=== PATIENT | male | born 1980 | race Caucasian/White ===

== ENCOUNTER 2019-02-09 13:12 | Inpatient (IN) | payer OTHER ==
--- NOTE | 2019-02-09 13:29 | PDOC ---
History of Present Illness - General Stated Complaint: BLOOD PRESSURE PROBLEM Time Seen by Provider: 02/09/19 13:29 - History of Present Illness Initial Comments: 02/09/19 13:47 The patient is a 38 year old male with a PMH of HTN, ETOH abuse, Heroin abuse, Cocaine abuse who was BIBA from [facility] for high blood pressure. States he hasn't taken his blood pressure medications for three days because he ran out of his prescription. Cannot recall the names of his medications but states he takes 5 medications daily. Patient also reports two week h/o intermittent L sided chest pain that is localized, pressure-like, occurs during exertion and lasts 30 minutes. Estimates 5-6 episodes over the last two weeks. Endorses baseline dyspnea on exertion without PND or orthopnea. No lower extremity swelling. Patient states he was evaluated on the third floor of our hospital in September of this year with a an echocardiogram and was told he had the heart of a 90 year old. Patient at [facility] for heroin and alcohol detoxification. Last heroin use was 2 bags on Friday, last alcohol use was 20 beers over the weekend. No h/o IVDU. As per EMR, patient's BP was 250/150 at [facility]. Currently on methadone. As per EMR, patient reported to [facility] that his is on Coreg, Amlodipine, HCTz , ASA. Patient denies fever, chills, abdominal pain, nausea, vomit, diarrhea or constipation. Patient denies dysuria, frequency, urgency or hematuria. Patient denies sick contacts or recent travel. NKDA PMD: In [place], cannot recall name Past History - Past Medical History Allergies/Adverse Reactions: Allergies Allergy/AdvReac Type Severity Reaction Status Date / Time No Known Allergies Allergy Verified 02/09/19 11:40 Home Medications: Ambulatory Orders Amlodipine Besylate 10 mg PO DAILY 02/09/19 Aspirin [ASA -] 81 mg PO DAILY 02/09/19 Carvedilol 12.5 mg PO DAILY 02/09/19 Hydrochlorothiazide 25 mg PO DAILY 02/09/19 Methadone HCl 30 mg PO DAILY 02/09/19 Review of Systems - Review of Systems Constitutional: No: Chills, Fever HEENTM: No: Recent change in vision Respiratory: Yes: Shortness of Breath. No: Orthopnea Cardiac (ROS): Yes: Chest Pain ABD/GI: No: Constipated, Diarrhea, Nausea, Vomiting : No: Burning, Dysuria *Physical Exam - Physical Exam Comments: 02/09/19 16:38 Triage VS reviewed General: awake, alert, NAD CV: S1, S2, Systolic Murmur best appreciated in 2nd L intercostal space Respiratory: CLTA B/L Abdomen: soft, non-tender, (+) bowel sounds, no hernia/mass Neuro: A&O x3, CN II-XII intact Extremity: no LE edema, 2+ DP pulses B/L Heart Score/ECG Review - History History: Moderately suspicious (HR 55 with TWI in lateral and inferior leads) - Age Age: </= 45 - Risk Factors Risk Factors Heart Score: Yes Hx Hypertension, Yes Smoking History - Troponin Troponin: 1-3x normal limit - ST and T Non Specific ST-T Wave changes: Yes Flattened T Waves: Yes ED Treatment Course - LABORATORY CBC & Chemistry Diagram: 02/09/19 14:00 02/09/19 14:00 Medical Decision Making - Medical Decision Making 02/09/19 14:04 38 year old male with elevated BP and chest pain. H/o non-adherence to BP medications. H/o recent cocaine and heroin abuse and self-reported concerning cardiac evaluation in September 2018 including TTE. Hypertensive (226/149) @ presentation. Will evaluate for r/o ACS, also consider cocaine induced CP, esophageal spasm, GERD, costochondritis. Low clinical suspicion for aortic dissection or PE or Sx Tricupsid Regurg PLAN: EKG, Troponin, CBC/CMP, Coags, Cardiac Monitoring 02/09/19 14:11 Repeat BP 226/140 Will give patient home dose of BP meds EKG shows TWI in inferior and lateral leads - ASA 325 for possible NSTEMI 02/09/19 15:26 Repeat BP 220/109 - will start Nitro drip Cr 1.8 Troponin 0.12 - will give ASA for possible NSTEMI 02/09/19 15:43 Nitro drip pending, awaiting pharmacy - 207/126 MAP 153 02/09/19 15:44 Case d/w [employer] Chela, will admit to telemetry 02/09/19 16:09 Repeat BP 170/95 MAP 120 - @ target, will pause nitro drip Clinical Impression: Hypertensive Emergency, ? NSTEMI *DC/Admit/Observation/Transfer Diagnosis at time of Disposition: Chest pain, Hypertensive emergency - Discharge Dispostion Condition at time of disposition: Fair Decision to Admit order: Yes - Referrals - Patient Instructions - Post Discharge Activity
[2019-02-09 14:10] LABS: BASO % 0.4 % (0-2.0); EOS % 0.9 % (0-4.5); HEMATOCRIT 38.2 % (35.4-49); LYMPH % 31.4 % (8-40); MCH 28.9 pg (25.7-33.7); MCHC 34.1 g/dl (32.0-35.9); MEAN CELL VOLUME 84.7 fl (80-96); MEAN PLT VOLUME 7.5 fl (7.5-11.1); MONO % 6.6 % (3.8-10.2); NEUT % 60.7 % (42.8-82.8); RBC 4.51 M/mm3 (4.00-5.60); RDW 13.6 % (11.9-15.9); WHITE BLOOD COUNT 7.4 K/mm3 (4.0-10.0)
[2019-02-09] MEDS ORDERED: amLODIPine BESYLATE 10 MG TABLET (FP) PO ONE (14:12)
[2019-02-09] MEDS ORDERED: ASPIRIN 325 MG TABLET PO ONE (14:12)
[2019-02-09] MEDS ORDERED: HYDROCHLOROTHIAZIDE 25 MG TABLET (FP) PO ONE ×2 (14:13→22:57)
[2019-02-09 14:18] LABS: PLATELET COUNT 272 K/MM3 (134-434)
[2019-02-09] MEDS ORDERED: ASPIRIN 325 MG TABLET ONE (14:29)
[2019-02-09] MEDS ORDERED: amLODIPine BESYLATE 5 MG TABLET (FP) ONE (14:29)
[2019-02-09] MEDS ORDERED: CARVEDILOL 12.5 MG TABLET (FP) ONE (14:30)
[2019-02-09] MEDS ORDERED: CARVEDILOL 12.5 MG TABLET (FP) PO ONE (14:35)
[2019-02-09] MEDS ORDERED: NITROGLYCERIN 2% OINTMENT - 1GM PACKET TD ONE ×2 (14:36→14:50)
--- NOTE | 2019-02-09 14:50 | EKG ---
Test Reason : Blood Pressure : / mmHG Vent. Rate : 055 BPM Atrial Rate : 055 BPM P-R Int : 180 ms QRS Dur : 098 ms QT Int : 466 ms P-R-T Axes : 055 025 225 degrees QTc Int : 445 ms SINUS BRADYCARDIA WITH SINUS ARRHYTHMIA POSSIBLE LEFT ATRIAL ENLARGEMENT LEFT VENTRICULAR HYPERTROPHY WITH REPOLARIZATION ABNORMALITY ABNORMAL ECG NO PREVIOUS ECGS AVAILABLE Confirmed by Pritesh Gutierrez MD ([id number]) on 02/09/2019 2:49:39 PM Referred By: Confirmed By:Pritesh Gutierrez MD
[2019-02-09 15:00] LABS: ALBUMIN 3.6 g/dl (3.4-5.0); BLOOD UREA NITROGEN 24.3 mg/dL (7-18); CALCIUM 8.5 mg/dL (8.5-10.1); CREATININE 1.8 mg/dL (0.55-1.3); POTASSIUM 3.3 mmol/L (3.5-5.1)
[2019-02-09 15:01] LABS: BILIRUBIN,TOTAL 0.3 mg/dL (0.2-1)
--- NOTE | 2019-02-09 15:26 | PDOC ---
Documentation entered by Iram Carrizales SCRIBE, acting as scribe for Lydia Laws MD. Lydia Laws MD: This documentation has been prepared by the All gipson Brenda, SCRIBE, under my direction and personally reviewed by me in its entirety. I confirm that the documentation accurately reflects all work, treatment, procedures, and medical decision making performed by me. Attending Attestation - Resident Resident Name: Astrid Garcia - ED Attending Attestation I have performed the following: I have examined & evaluated the patient, The case was reviewed & discussed with the resident, I agree w/resident's findings & plan, Exceptions are as noted - HPI HPI: 02/09/19 15:09 The patient is a 38 year old male, with a significant PMH of who presents to the emergency department [facility] from [facility] for high blood pressure. The EMR reported that his BP high enroute. The patient also reports 2 days of left sided chest pain, which feels like pressure, and having an onset of the same pressure since being in the ED. Patient also reports that he was recently seen in the hospital in September, where he received an echocardiogram and was told that he had the heart of a 89 year old man. The patient denies headache and dizziness. Denies fever and chills. Allergies: NKA Social history: Smoker PCP: Not reported - Physicial Exam PE: 02/09/19 15:09 GENERAL: Awake, alert, and fully oriented, in no acute distress HEAD: No signs of trauma EYES: PERRLA, EOMI, sclera anicteric, conjunctiva clear ENT: Auricles normal inspection, hearing grossly normal, nares patent, oropharynx clear without exudates. Moist mucosa NECK: Normal ROM, supple, no lymphadenopathy, JVD, or masses LUNGS: Breath sounds equal, clear to auscultation bilaterally. No wheezes, and no crackles HEART: Regular rate and rhythm, normal S1 and S2, no murmurs, rubs or gallops ABDOMEN: Soft, nontender, normoactive bowel sounds. No guarding, no rebound. No masses EXTREMITIES: Normal range of motion, no edema. No clubbing or cyanosis. No cords, erythema, or tenderness NEUROLOGICAL: Cranial nerves II through XII grossly intact. Normal speech, normal gait SKIN: Warm, Dry, normal turgor, no rashes or lesions noted. - Medical Decision Making 02/09/19 15:14 Pt presents to the ED complaining of chest pain and shortness of breath that have been intermittent since running out of his antihypertensive medications. Patient is making troponins and has non specific EKG changes. Will treat with nitroglycerin and ASA and admit to telemetry. 02/09/19 15:23
[2019-02-09] MEDS ORDERED: NITROGLYCERIN 25MG/D5W 250ML 25 MG/250 ML ML IVPB SCH (15:30)
[2019-02-09] MEDS ORDERED: NITROGLYCERIN 25MG/D5W 250ML 25 MG/250 ML ML IVPB ONE (15:42)
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
[2019-02-09] MEDS ORDERED: POTASSIUM CHLORIDE TABS 20 MEQ TABLET.ER (FP) PO ONE ×2 (18:56→19:52)
[2019-02-09] MEDS ORDERED: cloNIDine HCL 0.1 MG TABLET PO ONE (22:59)
--- NOTE | 2019-02-09 23:01 | HOSP ---
Subjective - Review of Symptoms Events since last encounter: Informed by assigned RN that Pt;s vitals were : BP 197/117mmHg, HR 57, RR 18, O2 sat 99% Pt asymtpomatic and has no complaints. He is alert and oriented, without evidence of neuro deficits. Pt prescribed clonidine 0.1mg STAT + HCTZ 25mg x 1 dose Will reassess BP within 1hr of dose administration. Physical Examination Vital Signs: Vital Signs Temperature 97.7 F 02/09/19 21:09 Pulse Rate 59 L 02/09/19 21:09 Respiratory Rate 16 02/09/19 21:09 Blood Pressure 165/98 02/09/19 21:09 O2 Sat by Pulse Oximetry (%) 98 02/09/19 21:09 Labs: CBC, BMP 02/09/19 14:00 02/09/19 14:00
[2019-02-10 01:15] VITALS: BMI 22.9
[2019-02-10 07:56] LABS: ALBUMIN 3.4 g/dl (3.4-5.0); BILIRUBIN,TOTAL 0.4 mg/dL (0.2-1); BLOOD UREA NITROGEN 23.2 mg/dL (7-18); CREATININE 1.8 mg/dL (0.55-1.3); INR 1.08 (0.83-1.09); MAGNESIUM 2.2 mg/dL (1.8-2.4); N-TERMINAL BNP 2031.7 pg/ml (5-125); PHOSPHOROUS 3.7 mg/dL (2.5-4.9); POTASSIUM 3.3 mmol/L (3.5-5.1); PROTHROMBIN TIME (PATIENT) 12.8 SEC (9.7-13.0); TOT PROT 6.5 g/dl (6.4-8.2)
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
[2019-02-10 09:02] LABS: BASO % 0.3 % (0-2.0); EOS % 2.4 % (0-4.5); HEMATOCRIT 37.2 % (35.4-49); HEMOGLOBIN 12.9 GM/dL (11.7-16.9); LYMPH % 36.1 % (8-40); MCH 29.2 pg (25.7-33.7); MCHC 34.6 g/dl (32.0-35.9); MEAN CELL VOLUME 84.5 fl (80-96); MEAN PLT VOLUME 8.2 fl (7.5-11.1); MONO % 7.6 % (3.8-10.2); NEUT % 53.6 % (42.8-82.8); PLATELET COUNT 231 K/MM3 (134-434); RDW 14.6 % (11.9-15.9); WHITE BLOOD COUNT 7.2 K/mm3 (4.0-10.0)
[2019-02-10] MEDS: THIAMINE HCL 100 MG TABLET (FP) PO SCH (09:39)
[2019-02-10] MEDS: MULTIVITAMINS (DAILY MVI) TABLET (FP) PO SCH (09:40)
[2019-02-10] MEDS: FOLIC ACID 1 MG TABLET (FP) PO SCH (09:40)
[2019-02-10] MEDS: ASPIRIN 81 MG CHEWABLE TABLETS PO SCH (09:40)
[2019-02-10] MEDS: amLODIPine BESYLATE 10 MG TABLET (FP) PO SCH (09:40)
[2019-02-10] MEDS: CARVEDILOL 12.5 MG TABLET (FP) PO SCH (09:40)
[2019-02-10] MEDS: HYDROCHLOROTHIAZIDE 25 MG TABLET (FP) PO SCH (09:40)
[2019-02-10] MEDS ORDERED: POTASSIUM CHLORIDE TABS 20 MEQ TABLET.ER (FP) PO ONE (09:45)
--- NOTE | 2019-02-10 11:57 | PN ---
Progress Note, Physician Chief Complaint: elevated BP History of Present Illness: patient sleeping, no complaints, no cp, sob, palpitations. BP elevated last night given norvasc and hctz, no headaches or vision changes - Current Medication List Current Medications: Active Medications Amlodipine Besylate (Norvasc -) 10 mg PO DAILY [facility] Last Admin: 02/10/19 09:40 Dose: 10 mg Aspirin (Asa -) 81 mg PO DAILY [facility] Last Admin: 02/10/19 09:40 Dose: 81 mg Carvedilol (Coreg -) 12.5 mg PO DAILY [facility] Last Admin: 02/10/19 09:40 Dose: 12.5 mg Folic Acid (Folic Acid -) 1 mg PO DAILY [facility] Last Admin: 02/10/19 09:40 Dose: 1 mg Heparin Sodium (Porcine) (Heparin -) 5,000 unit SQ TID [facility] Hydrochlorothiazide (Hctz -) 25 mg PO DAILY [facility] Last Admin: 02/10/19 09:40 Dose: 25 mg Nitroglycerin/Dextrose (Nitroglycerin 25mg/D5w 250ml) 25 mg in 250 mls @ 6 mls/ hr IVPB TITR [facility] Last Titration: 02/09/19 16:13 Dose: 0 mcg/min, 0 mls/hr Multivitamins/Minerals/Vitamin C (Tab-A-Vit -) 1 tab PO DAILY [facility] Last Admin: 02/10/19 09:40 Dose: 1 tab Thiamine HCl (Vitamin B1 -) 100 mg PO DAILY [facility] Last Admin: 02/10/19 09:39 Dose: 100 mg - Objective Vital Signs: Vital Signs Temperature 97.6 F 02/10/19 06:00 Pulse Rate 46 L 02/10/19 08:30 Respiratory Rate 18 02/10/19 08:34 Blood Pressure 183/97 H 02/10/19 08:30 O2 Sat by Pulse Oximetry (%) 99 02/10/19 08:34 Constitutional: Yes: Well Nourished, No Distress, Calm Eyes: Yes: Tearing HENT: Yes: WNL, Atraumatic, Normocephalic Cardiovascular: Yes: WNL, Regular Rate and Rhythm Respiratory: Yes: WNL, Regular, CTA Bilaterally Gastrointestinal: Yes: WNL, Normal Bowel Sounds Musculoskeletal: Yes: WNL Extremities: Yes: WNL Edema: No Labs: CBC, BMP 02/10/19 06:55 02/10/19 06:55 INR, PTT INR 1.08 (0.83-1.09) 02/10/19 06:55 Problem List - Problems (1) KIYA (acute kidney injury) Code(s): N17.9 - ACUTE KIDNEY FAILURE, UNSPECIFIED (2) Chest pain Code(s): R07.9 - CHEST PAIN, UNSPECIFIED (3) Cocaine abuse Code(s): F14.10 - COCAINE ABUSE, UNCOMPLICATED (4) ETOH abuse Code(s): F10.10 - ALCOHOL ABUSE, UNCOMPLICATED (5) Heroin abuse Code(s): F11.10 - OPIOID ABUSE, UNCOMPLICATED (6) Hypertensive emergency Code(s): I16.1 - HYPERTENSIVE EMERGENCY (7) Subclavian aneurysm Code(s): I72.8 - ANEURYSM OF OTHER SPECIFIED ARTERIES Assessment/Plan Assessment: Chest pain Hypertensive emergency KIYA Polysubstance abuse Subclavian aneurysm Generalized body pain Plan: -2decho today, pending read -flat troponins, EKG TWI in inferolateral leads -needs better BP control, bradycardic -on norvasc, hctz, coreg -not on nitro gtt, will DC -start on clonidine if remains elevated -or aceI once baseline kindey function established -cardiology eval appreciated -patient seen at [facility] for detoxification, Dr López -awaiting confirmation of methadone dosing -monitor for signs of withdrawal -thiamine, MVI, folic acid -CXR with density in medial right apical region. CT chest correlation revealed Right inominate and SC artery demonstartes mildly ectatic & redundant appearance that could represent a 1.7cm subclavian artery aneurysm -non-emergent MRI/MRI can be done as an outpatient -creat 1.8, unclear of baseline -monitor renal function, avoid nephrotoxic agents
--- NOTE | 2019-02-10 12:00 | ECHO ---
Name: JESSICANIKKI WEBSTER Exam:Adult Echocardiogram Study Date: 02/10/2019 10:04 AM Age: 38 yrs Reason For Study: HTN Height: 72 in Weight: 175 lb BSA: 2.0 m2 MMode/2D Measurements & Calculations IVSd: 1.4 cm Ao root diam: 3.1 cm LVIDd: 5.9 cm LA dimension: 3.5 cm LVIDs: 4.8 cm LVPWd: 1.5 cm EDV(Teich): 171.2 ml LVOT diam: 2.0 cm ESV(Teich): 109.2 ml LAV (MOD-bp): 80.0 ml Doppler Measurements & Calculations MV E max tano: 87.9 cm/sec Ao V2 max: 170.6 cm/sec MV A max tano: 63.9 cm/sec Ao max P.6 mmHg MV E/A: 1.4 Ao V2 mean: 120.3 cm/sec MV dec time: 0.30 sec Ao mean P.3 mmHg Ao V2 VTI: 35.6 cm ESA(I,D): 1.4 cm2 ESA(V,D): 1.5 cm2 LV V1 max P.4 mmHg MR max tano: 560.3 cm/sec LV V1 mean P.2 mmHg MR max P.6 mmHg LV V1 max: 77.5 cm/sec LV V1 mean: 50.5 cm/sec LV V1 VTI: 15.1 cm SV(LVOT): 49.9 ml TR max tano: 241.6 cm/sec TR max P.4 mmHg Med Peak E' Tano: 4.2 cm/sec Med E/e': 21.1 Lat Peak E' Tano: 4.9 cm/sec Lat E/e': 17.8 Left Ventricle The left ventricle is moderately dilated. There is moderate concentric left ventricular hypertrophy. Left ventricular systolic function is moderately reduced. Ejection Fraction = 40%. Left Ventricular Fillin g pattern is normal for age. There is moderate global hypokinesis of the left ventricle. Right Ventricle The right ventricle is normal in size and function. Atria Normal left and right atrial size and function. Mitral Valve There is mild mitral valve thickening. There is no mitral valve stenosis. There is moderate mitral regurgitation. Tricuspid Valve There is mild tricuspid valve thickening. There is no tricuspid stenosis. There is moderate tricuspid regurgitation. Right ventricular systolic pressure is normal. Aortic Valve The aortic valve is normal in structure and function. No hemodynamically significant valvular aortic stenosis. No aortic regurgitation is present. Pulmonic Valve The pulmonic valve is not well visualized. Great Vessels The aortic root is normal size. Pericardium/Pleura There is no pericardial effusion. Interpretation Summary There is moderate concentric left ventricular hypertrophy. The left ventricle is moderately dilated. There is moderate global hypokinesis of the left ventricle. Left ventricular systolic function is moderately reduced. There is moderate tricuspid regurgitation. Right ventricular systolic pressure is normal. Left Ventricular Filling pattern is normal for age. There is moderate mitral regurgitation. Ejection Fraction = 40%. MD Renny Goodwin 02/10/2019 11:58 AM
[2019-02-10] MEDS: HEPARIN NA (PORCINE) 5,000 UNITS/ML 1ML VIAL SQ SCH ×2 (14:18→22:09)
[2019-02-11] MEDS: HEPARIN NA (PORCINE) 5,000 UNITS/ML 1ML VIAL SQ SCH (06:18)
--- NOTE | 2019-02-11 07:36 | PN ---
Progress Note, Physician History of Present Illness: The patient is a 38 year old male with a PMH of HTN, ETOH abuse, Heroin abuse, Cocaine abuse who was BIBA from [facility] for high blood pressure. States he hasn't taken his blood pressure medications x 3 days, doesnt know names of medications. Patient also reports two week h/o intermittent L sided chest pain that is localized, pressure-like, occurs during exertion and lasts 30 minutes. Estimates 5-6 episodes over the last two weeks. Endorses baseline dyspnea on exertion without PND or orthopnea. No lower extremity swelling. States he had an TTE in September at [facility] and it was "really bad". Patient admitted to [facility] for heroin and alcohol detoxification. Last drug use was cocain 5 days ago, ETOH today 40-50 beers, and oxycontin 2 days ago, however conflicts usage reported to ED physician. No h/o IVDU. - Current Medication List Current Medications: Active Medications Amlodipine Besylate (Norvasc -) 10 mg PO DAILY [facility] Last Admin: 02/10/19 09:40 Dose: 10 mg Aspirin (Asa -) 81 mg PO DAILY [facility] Last Admin: 02/10/19 09:40 Dose: 81 mg Carvedilol (Coreg -) 12.5 mg PO DAILY [facility] Last Admin: 02/10/19 09:40 Dose: 12.5 mg Enalapril Maleate (Vasotec -) 5 mg PO DAILY [facility] Folic Acid (Folic Acid -) 1 mg PO DAILY [facility] Last Admin: 02/10/19 09:40 Dose: 1 mg Heparin Sodium (Porcine) (Heparin -) 5,000 unit SQ TID [facility] Last Admin: 02/11/19 06:18 Dose: 5,000 unit Hydrochlorothiazide (Hctz -) 25 mg PO DAILY [facility] Last Admin: 02/10/19 09:40 Dose: 25 mg Multivitamins/Minerals/Vitamin C (Tab-A-Vit -) 1 tab PO DAILY [facility] Last Admin: 02/10/19 09:40 Dose: 1 tab Thiamine HCl (Vitamin B1 -) 100 mg PO DAILY [facility] Last Admin: 02/10/19 09:39 Dose: 100 mg - Objective Vital Signs: Vital Signs Temperature 98.7 F 02/11/19 01:00 Pulse Rate 47 L 02/11/19 01:00 Respiratory Rate 18 02/11/19 01:00 Blood Pressure 179/104 H 02/11/19 01:00 O2 Sat by Pulse Oximetry (%) 98 02/10/19 21:00 Labs: CBC, BMP 02/10/19 06:55 02/10/19 06:55 INR, PTT INR 1.08 (0.83-1.09) 02/10/19 06:55 Problem List - Problems (1) Shortness of breath on exertion Code(s): R06.02 - SHORTNESS OF BREATH (2) Chest pain Code(s): R07.9 - CHEST PAIN, UNSPECIFIED (3) Hip pain Code(s): M25.559 - PAIN IN UNSPECIFIED HIP (4) Knee pain Code(s): M25.569 - PAIN IN UNSPECIFIED KNEE (5) Opioid abuse Code(s): F11.10 - OPIOID ABUSE, UNCOMPLICATED (6) Marijuana abuse Code(s): F12.10 - CANNABIS ABUSE, UNCOMPLICATED (7) Heroin abuse Code(s): F11.10 - OPIOID ABUSE, UNCOMPLICATED (8) Cocaine abuse Code(s): F14.10 - COCAINE ABUSE, UNCOMPLICATED (9) ETOH abuse Code(s): F10.10 - ALCOHOL ABUSE, UNCOMPLICATED (10) Subclavian aneurysm Code(s): I72.8 - ANEURYSM OF OTHER SPECIFIED ARTERIES (11) Hypertensive emergency Code(s): I16.1 - HYPERTENSIVE EMERGENCY (12) Prophylactic measure Code(s): Z29.9 - ENCOUNTER FOR PROPHYLACTIC MEASURES, UNSPECIFIED (13) KIYA (acute kidney injury) Code(s): N17.9 - ACUTE KIDNEY FAILURE, UNSPECIFIED
[2019-02-11 07:41] VITALS: TEMP 98
[2019-02-11 07:54] LABS: BASO % 0.5 % (0-2.0); EOS % 1.9 % (0-4.5); HEMATOCRIT 40.3 % (35.4-49); HEMOGLOBIN 13.8 GM/dL (11.7-16.9); LYMPH % 28.1 % (8-40); MCHC 34.3 g/dl (32.0-35.9); MEAN CELL VOLUME 84.5 fl (80-96); MEAN PLT VOLUME 8.1 fl (7.5-11.1); MONO % 5.9 % (3.8-10.2); NEUT % 63.6 % (42.8-82.8); PLATELET COUNT 280 K/MM3 (134-434); RBC 4.76 M/mm3 (4.00-5.60); RDW 14.3 % (11.9-15.9)
[2019-02-11 08:29] LABS: BLOOD UREA NITROGEN 26.6 mg/dL (7-18); CALCIUM 8.7 mg/dL (8.5-10.1); CREATININE 1.8 mg/dL (0.55-1.3); MAGNESIUM 2.2 mg/dL (1.8-2.4); POTASSIUM 3.2 mmol/L (3.5-5.1)
[2019-02-11] MEDS ORDERED: POTASSIUM CHLORIDE TABS 20 MEQ TABLET.ER (FP) PO ONE ×2 (09:00→18:00)
[2019-02-11 09:14] VITALS: BP 178/114; PULSE 54
[2019-02-11] MEDS: FOLIC ACID 1 MG TABLET (FP) PO SCH (09:53)
[2019-02-11] MEDS: amLODIPine BESYLATE 10 MG TABLET (FP) PO SCH (09:53)
[2019-02-11] MEDS: ASPIRIN 81 MG CHEWABLE TABLETS PO SCH (09:53)
[2019-02-11] MEDS: THIAMINE HCL 100 MG TABLET (FP) PO SCH (09:53)
[2019-02-11] MEDS: CARVEDILOL 12.5 MG TABLET (FP) PO SCH (09:53)
[2019-02-11] MEDS: HYDROCHLOROTHIAZIDE 25 MG TABLET (FP) PO SCH (09:53)
[2019-02-11] MEDS: MULTIVITAMINS (DAILY MVI) TABLET (FP) PO SCH (09:53)
[2019-02-11] MEDS ORDERED: ENALAPRIL MALEATE 5 MG TABLET (FP) PO SCH (10:00)
--- NOTE | 2019-02-11 10:48 | DS ---
Physical Exam: SUBJECTIVE: Patient seen and examined.Demanding to be discharged from hospital. Informed patient that it is unsafe to leave and would be against medical advice. OBJECTIVE: Vital Signs Period Temp Pulse Resp BP Sys/Wade Pulse Ox Last 24 Hr 97.6 F-98.8 F 47-62 17-20 144-190/84-114 98 PHYSICAL EXAM GENERAL: The patient is awake, alert, and fully oriented, in no acute distress. HEAD: Normal with no signs of trauma. EYES: PERRL, extraocular movements intact, sclera anicteric, conjunctiva clear. ENT: Ears normal, nares patent, oropharynx clear without exudates, moist mucous membranes. NECK: Trachea midline, full range of motion, supple. LUNGS: Breath sounds equal, clear to auscultation bilaterally, no wheezes, no crackles, no accessory muscle use. HEART: Regular rate and rhythm, S1, S2 without murmur, rub or gallop. ABDOMEN: Soft, nontender, nondistended, normoactive bowel sounds, no guarding, no rebound, no hepatosplenomegaly, no masses. EXTREMITIES: 2+ pulses, warm, well-perfused, no edema. NEUROLOGICAL: Cranial nerves II through XII grossly intact. Normal speech, gait not observed. PSYCH: Normal mood, normal affect. SKIN: Warm, dry, normal turgor, no rashes or lesions noted. LABS Laboratory Results - last 24 hr 02/10/19 02/11/19 02/11/19 06:55 05:40 05:40 WBC 7.0 RBC 4.76 Hgb 13.8 Hct 40.3 MCV 84.5 MCH 29.0 MCHC 34.3 RDW 14.3 Plt Count 280 D MPV 8.1 Absolute Neuts (auto) 4.4 Neutrophils % 63.6 Lymphocytes % 28.1 D Monocytes % 5.9 Eosinophils % 1.9 Basophils % 0.5 Nucleated RBC % 0 Sodium 140 139 Potassium 3.3 L 3.2 L Chloride 104 101 Carbon Dioxide 29 31 Anion Gap 6 L 7 L BUN 23.2 H 26.6 H Creatinine 1.8 H 1.8 H Est GFR (CKD-EPI)AfAm 54.90 54.90 Est GFR (CKD-EPI)NonAf 47.36 47.36 Random Glucose 88 78 Calcium 8.0 L 8.7 Phosphorus 3.7 Magnesium 2.2 2.2 Total Bilirubin 0.4 AST 8 L ALT 9 L Alkaline Phosphatase 71 Troponin I 0.12 H B-Natriuretic Peptide 2031.7 H Total Protein 6.5 Albumin 3.4 HOSPITAL COURSE: Date of Admission:02/09/19 The patient is a 38 year old male with a PMH of HTN, ETOH abuse, Heroin abuse, Cocaine abuse who was BIBA from [facility] for high blood pressure. States he hasn't taken his blood pressure medications x 3 days, doesnt know names of medications. Patient also reports two week h/o intermittent L sided chest pain that is localized, pressure-like, occurs during exertion and lasts 30 minutes. Estimates 5-6 episodes over the last two weeks. Endorses baseline dyspnea on exertion without PND or orthopnea. No lower extremity swelling. States he had an TTE in September at [facility] and it was "really bad". Patient admitted to [facility] for heroin and alcohol detoxification. Last drug use was cocain 5 days ago, ETOH today 40-50 beers, and oxycontin 2 days ago, however conflicts usage reported to ED physician. No h/o IVDU. Patient treated with IV medications to lower his blood pressure. Troponins elevated and ischemic changes to lateral and inferior leads. CT done that revealed aneurysm to SC artery-Right inominate and SC artery demonstartes mildly ectatic & redundant appearance that could represent a 1.7cm subclavian artery aneurysm. Can follow up with MRI as an in patient. Seen by cardiology> TTE done with EF 40%. Vasotec started this morning for better BP control. Patient wants to sign out AMA. Informed patient that it is unsafe to leave the hospital with BP so elevated and can lead to stroke, seizures and/or . Patient stated that he will go to his doctors at [facility]. Prescriptions trasmitted to [facility]. Date of Discharge: 02/11/19 Minutes to complete discharge: 30 Discharge Summary Reason For Visit: CHEST PAIN Current Active Problems KIYA (acute kidney injury) (Acute) Chest pain (Acute) Cocaine abuse (Acute) ETOH abuse (Acute) Heroin abuse (Acute) Hip pain (Acute) Hypertensive emergency (Acute) Hypertensive urgency (Acute) Knee pain (Acute) Marijuana abuse (Acute) Opioid abuse (Acute) Pain (Acute) Prophylactic measure (Acute) Shortness of breath on exertion (Acute) Subclavian aneurysm (Acute) Condition: Fair - Instructions Disposition: AGAINST MEDICAL ADVICE - Home Medications Comprehensive Discharge Medication List: Ambulatory Orders Aspirin [ASA -] 81 mg PO DAILY 02/09/19 Methadone HCl 30 mg PO DAILY 02/09/19 Amlodipine Besylate 10 mg PO DAILY #30 tablet 02/11/19 Carvedilol 12.5 mg PO DAILY #30 tablet 02/11/19 Enalapril Maleate [Vasotec -] 5 mg PO DAILY #30 tablet 02/11/19 Folic Acid - 1 mg PO DAILY #0 tablet 02/11/19 Hydrochlorothiazide 25 mg PO DAILY #30 tablet 02/11/19 Multivitamins [Multivit ([facility] Formul[facility])] 1 tab PO DAILY tab 02/11/19 Thiamine HCl [Vitamin B1 -] 100 mg PO DAILY tablet 02/11/19 Problem List - Problems (1) Shortness of breath on exertion Code(s): R06.02 - SHORTNESS OF BREATH (2) Chest pain Code(s): R07.9 - CHEST PAIN, UNSPECIFIED (3) Hip pain Code(s): M25.559 - PAIN IN UNSPECIFIED HIP (4) Knee pain Code(s): M25.569 - PAIN IN UNSPECIFIED KNEE (5) Opioid abuse Code(s): F11.10 - OPIOID ABUSE, UNCOMPLICATED (6) Marijuana abuse Code(s): F12.10 - CANNABIS ABUSE, UNCOMPLICATED (7) Heroin abuse Code(s): F11.10 - OPIOID ABUSE, UNCOMPLICATED (8) Cocaine abuse Code(s): F14.10 - COCAINE ABUSE, UNCOMPLICATED (9) ETOH abuse Code(s): F10.10 - ALCOHOL ABUSE, UNCOMPLICATED (10) Subclavian aneurysm Code(s): I72.8 - ANEURYSM OF OTHER SPECIFIED ARTERIES (11) Hypertensive emergency Code(s): I16.1 - HYPERTENSIVE EMERGENCY (12) Prophylactic measure Code(s): Z29.9 - ENCOUNTER FOR PROPHYLACTIC MEASURES, UNSPECIFIED (13) KIYA (acute kidney injury) Code(s): N17.9 - ACUTE KIDNEY FAILURE, UNSPECIFIED This patient is new to me today: No Emergency Visit: Yes ED Registration Date: 02/09/19 Care time: The patient presented to the Emergency Department on the above date and was hospitalized for further evaluation of their emergent condition. Critical Care patient: No - Discharge Referral Referred to [facility] No
== END 2019-02-11 11:09 | disposition left against medical advice (07) | DRG 199 ==
LOC: JER 13:12 → JERBED 15:41 → OBSVTOIN 19:05 → J4W 22:00
PROVIDERS: ADMIT Internal Medicine; ATTEND Nurse Practitioner Acute Care
DX: I16.1 Hypertensive emergency (principal); R06.02 Shortness of breath; R07.9 Chest pain, unspecified; F12.10 Cannabis abuse, uncomplicated; F10.20 Alcohol dependence, uncomplicated; F17.210 Nicotine dependence, cigarettes, uncomplicated; I10 Essential (primary) hypertension; F11.20 Opioid dependence, uncomplicated; I72.8 Aneurysm of other specified arteries; N17.9 Acute kidney failure, unspecified; E87.6 Hypokalemia
CPT/HCPCS: 36415; 71045-TC-FY; 71250-TC; 80048; 80053; 82550; 83605; 83735; 83880; 84100; 84484; 85025; 85610; 93005; 93010; 93306-TC; 99285-25; G0378; J0735; J1644